=== PATIENT | male | born 1995 | race Caucasian/White ===

== ENCOUNTER 2018-08-15 14:28 | Emergency (ER) | payer SELFPAY ==
[2018-08-15] MEDS ORDERED: OXYCODONE-ACETAMINOPHEN 5-325 MG TABLET PO ONE (15:03)
[2018-08-15] MEDS ORDERED: LIDOCAINE 1% INJ (10 MG/ML) 10 ML MDV INJ ONE (15:03)
--- NOTE | 2018-08-15 15:17 | ER Document Report ---
ED Hand/Wrist Injury - General Chief Complaint: Hand Injury Stated Complaint: HAND LACERATION Time Seen by Provider: 08/15/18 14:53 Mode of Arrival: Ambulatory Information source: Patient TRAVEL OUTSIDE OF THE [place] 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, who presents to the emergency room for laceration to his left hand that occurred while he was cutting a tree down today, when the top of the tree fell he had a vine on it that caught his hand causing the injury, he does report decreased sensation to the first 3 digits on the hand and inability to completely make a fist, patient's last tetanus shot was earlier this year - Related Data Allergies/Adverse Reactions: diphenhydramine [From Benadryl] Allergy (Verified 08/15/18 14:32) Past Medical History - General Information source: Patient - Social History Smoking Status: Unknown if Ever Smoked Family History: Reviewed & Not Pertinent Review of Systems - Review of Systems Constitutional: No symptoms reported EENT: No symptoms reported Cardiovascular: No symptoms reported Respiratory: No symptoms reported Gastrointestinal: No symptoms reported Genitourinary: No symptoms reported Male Genitourinary: No symptoms reported Musculoskeletal: See HPI Skin: See HPI Hematologic/Lymphatic: No symptoms reported Neurological/Psychological: No symptoms reported -: Yes All other systems reviewed and negative Physical Exam - Vital signs Vitals: Temp Pulse Resp BP Pulse Ox 97.6 F 92 14 117/75 96 08/15/18 14:39 08/15/18 14:39 08/15/18 14:39 08/15/18 14:39 08/15/18 14:39 Interpretation: Normal - General General appearance: Appears well, Alert - HEENT Head: Normocephalic, Atraumatic Eyes: Normal Pupils: PERRL - Respiratory Respiratory status: No respiratory distress Chest status: Nontender Breath sounds: Normal Chest palpation: Normal - Cardiovascular Rhythm: Regular Heart sounds: Normal auscultation Murmur: No - Abdominal Inspection: Normal Distension: No distension Bowel sounds: Normal Tenderness: Nontender Organomegaly: No organomegaly - Back Back: Normal, Nontender - Extremities General lower extremity: Normal inspection, Nontender, Normal color, Normal ROM , Normal temperature, Normal weight bearing. No: Shari's sign Hand: Other - On the palmar surface of the left hand over the thenar eminence is a large 6 cm wound which is linear in nature and has large amount of adipose tissue exposure, on the medial surface of the thumb are 2 wounds one measuring approximately 5 cm and the other 1.5 cm, which are linear in nature, patient reports decreased sensation to the first 3 digits on the left hand with inability to completely flex those fingers as well, there is brisk capillary refill and 2+ radial pulses - Neurological Neuro grossly intact: Yes Cognition: Normal Orientation: AAOx4 [place] Coma Scale Eye Opening: Spontaneous [place] Coma Scale Verbal: Oriented [place] Coma Scale Motor: Obeys Commands [place] Coma Scale Total: 15 Speech: Normal Motor strength normal: LUE, RUE, LLE, RLE Sensory: Normal - Psychological Associated symptoms: Normal affect, Normal mood - Skin Skin Temperature: Warm Skin Moisture: Dry Skin Color: Normal Course - Re-evaluation Re-evalutation: 08/15/18 15:09 Patient was discussed with on-call orthopedic surgeon, Dr. Leroy Herrera who requests that I loosely close the wounds on the hand and have patient report to his office at 8:00 tomorrow morning for further evaluation and treatment, this plan was discussed with patient at bedside who is in agreement as well 08/15/18 18:04 Of note x-ray shows the possibility of a foreign body, patient did remove a small piece of branch prior to any anesthetizing and cleaning his wounds, no foreign bodies were seen on examination - Vital Signs Vital signs: Temp Pulse Resp BP Pulse Ox 98.2 F 74 18 129/61 H 100 08/15/18 16:31 08/15/18 16:31 08/15/18 16:31 08/15/18 16:31 08/15/18 16:31 - Diagnostic Test Radiology reviewed: Image reviewed, Reports reviewed Procedures - Laceration/Wound Repair Left Hand Time completed: 16:14 Wound length (cm): 6 Wound's Depth, Shape: Linear, Contused tissue Laceration pre-procedure: Sterile PPE donned, Sterile drapes applied, Shur- Clens applied Anesthetic type: 1% Lidocaine Volume Anesthetic (mLs): 8 Wound explored: Contaminated Irrigated w/ Saline (mLs): 400 Wound Repaired With: Brayan Suture Size/Type: 4:0, Ethilon Number of Sutures: 8 Layer Closure?: No Post-procedure wound care: Sterile dressing applied Post-procedure NV exam normal: No - unchanged from prior Complications: No Hands front picture: 1 - 6cm laceration Left Thumb Time completed: 16:15 Wound length (cm): 5 Wound's Depth, Shape: Linear, Irregular, Contused tissue Laceration pre-procedure: Sterile PPE donned, Sterile drapes applied, Shur- Clens applied Anesthetic type: 1% Lidocaine Volume Anesthetic (mLs): 4 Wound explored: Clean Irrigated w/ Saline (mLs): 400 Wound Repaired With: Sutures Suture Size/Type: 4:0, Ethilon Post-procedure wound care: Sterile dressing applied Post-procedure NV exam normal: No - unchanged from prior Hands front picture: 1 - 5cm laceration 2 - 1.5cm laceration Discharge - Discharge Clinical Impression: Hand laceration involving tendon Qualifiers: Encounter type: initial encounter Laterality: left Qualified Code(s): S61.412A - Laceration without foreign body of left hand, initial encounter; S66.922A - Laceration of unspecified muscle, fascia and tendon at wrist and hand level, left hand, initial encounter; S66.922A - Laceration of unspecified muscle, fascia and tendon at wrist and hand level, left hand, initial encounter Condition: Stable Disposition: HOME, SELF-CARE Instructions: Antibiotic Ointment Protection ([facility]), Laceration Care ([facility]), Oral Narcotic Medication ([facility]), Prophylactic Antibiotic ([facility]), Soap Cleansing ( [facility]) Additional Instructions: Follow up with your primary care provider in 2-3 days for wound check. Keep wound clean and covered with antibiotic ointment and a clean dressing. Gently rinse with warm water and soap twice daily. Sutures to be removed in 10-14 days. Return to the emergency room immediately if symptoms worsen or any additional concerns. Follow-up with orthopedic surgery, Dr. Leroy Herrera first thing tomorrow morning at 8 AM. He is expecting you in his office for this appointment. Prescriptions: Cephalexin Monohydrate [Keflex 500 mg Capsule] 500 mg PO BID #20 capsule Hydrocodone/Acetaminophen [[place] 5-325 mg Tablet] 1 tab PO Q6 #10 tablet Referrals: LEROY HERRERA MD [ACTIVE STAFF] - Follow up as needed
--- NOTE | 2018-08-15 15:43 | RADIOLOGY REPORT (SQ) ---
EXAM DESCRIPTION: HAND LEFT 3 VIEWS COMPLETED DATE/TIME: 08/15/2018 3:31 pm REASON FOR STUDY: injury tree branch penetrated thenar eminence of left hand COMPARISON: None. EXAM PARAMETERS: NUMBER OF VIEWS: Three views. TECHNIQUE: AP, lateral and oblique radiographic images acquired of the left hand. LIMITATIONS: None. FINDINGS: MINERALIZATION: Normal. BONES: No acute fracture or dislocation. No worrisome bone lesions. JOINTS: No effusions. SOFT TISSUES: Along the left thumb/thenar eminence, linear air bubble is present which could represen t a laceration or could represent a retained fragment of wood, measuring about 2 cm by 2 mm in size OTHER: No other significant finding. IMPRESSION: No fracture. Along the left thumb/thenar eminence, linear air bubble is present which could represent a laceration or could represent a retained fragment of wood TECHNICAL DOCUMENTATION: JOB ID: [id number] [employer]- All Rights Reserved Reading location - IP/workstation name: [email or web address]
[2018-08-15 16:32] VITALS: BP 129/61
== END 2018-08-15 16:32 | disposition home or self-care (01) ==
LOC: ER 14:28
DX: S66.922A Laceration of unspecified muscle, fascia and tendon at wrist and hand level, left hand, initial encounter (principal); S61.012A Laceration without foreign body of left thumb without damage to nail, initial encounter; W20.8XXA Other cause of strike by thrown, projected or falling object, initial encounter; Y93.H9 Activity, other involving exterior property and land maintenance, building and construction; Y99.0 Civilian activity done for income or pay; Z88.8 Allergy status to other drugs, medicaments and biological substances
CPT/HCPCS: 99283